=== PATIENT | male | born 1955 | race Asian ===

== ENCOUNTER 2020-08-15 16:41 | Emergency (ER) | payer OTHER ==
[~2020-08-15] VITALS: Ht 188 cm; Wt 90.7 kg
[2020-08-15 16:41] VITALS: BP 164/94; TEMP 98.7
[2020-08-15 17:05] LABS: PLATELET COUNT 165 K/uL (142-355)
[2020-08-15 17:14] LABS: POTASSIUM 4.4 mmol/L (3.6-5.2)
[2020-08-15] MEDS ORDERED: AMLODIPINE BESYLATE PO (22:06)
[2020-08-15] MEDS ORDERED: LIPITOR10 MG PO (22:09)
[2020-08-15] MEDS ORDERED: BENZ1TAB43 PO (22:10)
[2020-08-15] MEDS ORDERED: DECUBI-VITE PO (22:12)
[2020-08-15] MEDS ORDERED: FERROUS SULF325 M1 PO (22:13)
[2020-08-15] MEDS ORDERED: NEURONTIN 100M100 MG PO (22:14)
[2020-08-15] MEDS ORDERED: ZIPR20IN IM (22:16)
[2020-08-15] MEDS ORDERED: JANUVIA100 MG PO (22:17)
[2020-08-15] MEDS ORDERED: LOSA50TA PO (22:18)
[2020-08-15] MEDS ORDERED: METF100038 PO (22:19)
[2020-08-15] MEDS ORDERED: MULTIVITAMI1 PO (22:20)
[2020-08-15] MEDS ORDERED: PALIPERIDONE ER6 MG PO (22:21)
[2020-08-15] MEDS ORDERED: PROTEINE1 PO (22:22)
[2020-08-15] MEDS ORDERED: PANTOPRAZOLE 40MG TA PO (22:24)
[2020-08-15] MEDS ORDERED: TRAZ50TA36 PO (22:24)
[2020-08-15] MEDS ORDERED: DIVA250T PO (22:25)
[2020-08-15] MEDS ORDERED: ZIPRASIDONE HYD40 MG PO (22:26)
== END 2020-08-15 19:15 | disposition other institution (70) ==
LOC: ED 16:41
PROVIDERS: Emergency Medicine Emergency Medical Services
DX: F20.89 Other schizophrenia (principal); G30.8 Other Alzheimer's disease; F02.80 Dementia in other diseases classified elsewhere, unspecified severity, without behavioral disturbance, psychotic disturbance, mood disturbance, and anxiety; Z11.59 Encounter for screening for other viral diseases; Z04.6 Encounter for general psychiatric examination, requested by authority
CPT/HCPCS: 80053; 85027; 87635; 93005; 99283; U0003